=== PATIENT | female | born 1965 | race Caucasian/White ===

== ENCOUNTER 2017-12-19 09:32 | Emergency (ER) | payer OTHER ==
[2017-12-19] MEDS ORDERED: Ketorolac INJ* 60 MG/2 ML VIAL IM ONE (10:27)
[2017-12-19] MEDS ORDERED: Lidocaine 2% PF * 5 ML VIAL INJ ONE (10:34)
--- NOTE | 2017-12-19 10:47 | ED ---
Skin Complaint - HPI Summary HPI Summary: Patient presents with painful bump in her perirectal area on the right side. She noticed a small bump a few days ago which is gotten progressively larger and more painful. She denies fever, chills, nausea, vomiting, abdominal pain however she notes her bowel movements have become painful as she passes stool externally it presses on this area. Denies drainage from the area. She has been trying warm compresses without much relief. She is also taken some ibuprofen but has not taken any today. She still able to urinate move her bowels. Denies diarrhea, hematochezia, melena and no history of inflammatory bowel disease/fistulas/hemorrhoids or rectal/digestive issues. Furthermore, she admits she is a fast healer whenever she gets cuts or scrapes on her scan however does have a history of MRSA. 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 She also admits to shaving in this area. - History of Current Complaint Chief Complaint: UCSkin Time Seen by Provider: 12/19/17 10:07 Stated Complaint: BOIL- BUTTOCKS Hx Obtained From: Patient Hx Last Menstrual Period: 2 weeks Pain Intensity: 7 - Allergy/Home Medications Allergies/Adverse Reactions: Allergies Allergy/AdvReac Type Severity Reaction Status Date / Time bee venom protein (honey bee) Allergy Difficulty Verified 12/19/17 09:50 Breathing Penicillins Allergy Difficulty Verified 12/19/17 09:50 Breathing Home Medications: Home Medications Ibuprofen TAB* [Advil TAB*] 600 mg PO Q6H PRN 12/19/17 [History Confirmed ] PMH/Surg Hx/FS Hx/Imm Hx Previously Healthy: Yes Endocrine/Hematology History: Denies: Hx Anticoagulant Therapy, Hx Blood Disorders, Hx Diabetes, Autoimmune Disease Respiratory History: Reports: Hx Chronic Obstructive Pulmonary Disease (COPD) GI History: Denies: Hx Crohn's Disease, Hx Diverticulosis, Hx Gastroesophageal Reflux Disease, Hx Gastrointestinal Bleed, Hx Irritable Bowel - Surgical History Surgery Procedure, Year, and Place: tonsillectomy. cervics removed. appendectomy. ACL repair R knee Infectious Disease History: Yes Infectious Disease History: Reports: Hx of Known/Suspected MRSA - hand, forehead Denies: Traveled Outside the [place] in Last 30 Days - Family History Known Family History: Positive: None - Social History Occupation: Employed Full-time - senior quality assurance analyst at [employer] Alcohol Use: Rare Hx Substance Use: No Substance Use Type: Reports: None Hx Tobacco Use: Yes Smoking Status (MU): Current Every Day Smoker Type: Cigarettes Amount Used/How Often: 1-1/2 ppd Review of Systems Constitutional: Negative Negative: Fever, Chills, Fatigue Cardiovascular: Negative Respiratory: Negative Gastrointestinal: Negative Positive: see HPI Musculoskeletal: Negative Skin: Negative Neurological: Negative Psychological: Normal All Other Systems Reviewed And Are Negative: Yes Physical Exam Triage Information Reviewed: Yes Vital Signs On Initial Exam: Initial Vitals Temp Pulse Resp BP Pulse Ox 98.2 F 80 16 126/83 97 12/19/17 09:44 12/19/17 09:44 12/19/17 09:44 12/19/17 09:44 12/19/17 09:44 Vital Signs Reviewed: Yes Appearance: Positive: Well-Appearing, No Pain Distress - lying in Lt side - discomfort w/ transitin of positions, Well-Nourished Skin: Positive: Warm, Skin Color Reflects Adequate Perfusion, Dry Head/Face: Positive: Normal Head/Face Inspection Eyes: Positive: EOMI ENT: Positive: Hearing grossly normal Respiratory/Lung Sounds: Positive: Breath Sounds Present Cardiovascular: Positive: Pulses are Symmetrical in both Upper and Lower Extremities. Negative: Leg Edema Left, Leg Edema Right Abdomen Description: Positive: Nontender, Soft Pelvic Exam: Positive: External Exam Normal - Rt perilabial/perirectal abscess - erythematous, raised area w/ central pusutle - no drainage, TTP - edema with mild tracking toward Rt labia anteriorly; this area of irritation does not touch the rectal sphincter externally - no bleeding, no hemrrhoids, no fissues observed Musculoskeletal: Positive: Normal, Strength/ROM Intact Neurological: Positive: Normal, Sensory/Motor Intact, Alert, Oriented to Person Place, Time, CN Intact II-III Psychiatric: Positive: Normal - concerned but calm, cooperative and pleasant Procedures - Incision and Drainage Right Buttocks Site: Rt perineal region Anesthesia: Local, Lidocaine - 2% Instrument(s): Scalpel - #11 - seropurlent drainage Packing: Other - flushed w/ saline and covered with sterile gauze - hemodynamically stable -pt tolerated well Diagnostics - Vital Signs Vital Signs Temp Pulse Resp BP Pulse Ox 12/19/17 09:44 98.2 F 80 16 126/83 97 - Laboratory Lab Statement: Any lab studies that have been ordered have been reviewed, and results considered in the medical decision making process. Re-Evaluation - Re-Evaluation First Eval Change: Improved - pt reports "I feel much better".." I can stand and walk now" Course/Dx - Diagnoses Provider Diagnoses: Perineal abscess Discharge - Sign-Out/Discharge Documenting (check all that apply): Patient Departure All imaging exams completed and their final reports reviewed: No - Discharge Plan Condition: Stable Disposition: HOME Prescriptions: Ibuprofen TAB* [Motrin TAB* 600 MG] 600 mg PO Q6H PRN #20 tab PRN Reason: Pain Sulfamethox/Trimethoprim DS* [Bactrim DS 800/160 TAB*] 1 tab PO BID #20 tab Patient Education Materials: Abscess (ED), Incision and Drainage (ED), Sitz Bath (DC) Forms: *Work Release Referrals: No Primary Care Phys,NOPCP [Primary Care Provider] - Additional Instructions: Your abscess was opened and drained today. Is important that you keep this area as clean as possible. You may do this by rinsing the area with a water bottle after moving your bowels or urinating. Pat dry with a clean cloth and replace fresh clean gauze pad into the area before pulling up your underwear to help hold gauze in place. Check dressing multiple times throughout the day to assess for excessive bleeding or drainage. If your bleeding through gauze pads , go to the emergency department. Additionally, you may implement sitz baths (see education for details and ask pharmacist for direction). This will help the area stay clean and heal. It is also important that you complete your antibiotics as directed. Ibuprofen has been sent to the pharmacy for pain and swelling - take as directed with food. Follow-up back here at urgent care in 2 days for recheck of your wound. If you' re feeling worse in the meantime (i.e. fever, chills, excessive bleeding or drainage, nausea, vomiting, abdominal pain, difficulty urinating or moving her bowels) go to the emergency department. As we discussed today, if your wound is not healing appropriately or requires further attention, you may be referred to a general surgeon. The provider that sees you here in 2 days will make this decision. - Billing Disposition and Condition Condition: STABLE Disposition: Home
[2017-12-19 11:57] VITALS: BP 122/74
--- NOTE | 2017-12-20 08:43 | UC ---
Re-Evaluation - Re-Evaluation First Eval Change: Improved - pt reports "I feel much better".." I can stand and walk now" Course/Dx - Diagnoses Provider Diagnoses: Perineal abscess Discharge - Sign-Out/Discharge Documenting (check all that apply): Post-Discharge Follow Up All imaging exams completed and their final reports reviewed: No Studies - Discharge Plan Condition: Stable Disposition: HOME Prescriptions: Ibuprofen TAB* [Motrin TAB* 600 MG] 600 mg PO Q6H PRN #20 tab PRN Reason: Pain Sulfamethox/Trimethoprim DS* [Bactrim DS 800/160 TAB*] 1 tab PO BID #20 tab Patient Education Materials: Abscess (ED), Incision and Drainage (ED), Sitz Bath (DC) Forms: *Work Release Referrals: No Primary Care Phys,NOPCP [Primary Care Provider] - Additional Instructions: Your abscess was opened and drained today. Is important that you keep this area as clean as possible. You may do this by rinsing the area with a water bottle after moving your bowels or urinating. Pat dry with a clean cloth and replace fresh clean gauze pad into the area before pulling up your underwear to help hold gauze in place. Check dressing multiple times throughout the day to assess for excessive bleeding or drainage. If your bleeding through gauze pads , go to the emergency department. Additionally, you may implement sitz baths (see education for details and ask pharmacist for direction). This will help the area stay clean and heal. It is also important that you complete your antibiotics as directed. Ibuprofen has been sent to the pharmacy for pain and swelling - take as directed with food. Follow-up back here at urgent care in 2 days for recheck of your wound. If you' re feeling worse in the meantime (i.e. fever, chills, excessive bleeding or drainage, nausea, vomiting, abdominal pain, difficulty urinating or moving her bowels) go to the emergency department. As we discussed today, if your wound is not healing appropriately or requires further attention, you may be referred to a general surgeon. The provider that sees you here in 2 days will make this decision. - Billing Disposition and Condition Condition: STABLE Disposition: Home
== END 2017-12-19 11:50 | disposition home or self-care (01) ==
LOC: UCEAST 09:32
DX: L02.215 Cutaneous abscess of perineum (principal); F17.210 Nicotine dependence, cigarettes, uncomplicated; Z91.030 Bee allergy status; Z88.0 Allergy status to penicillin; Z86.14 Personal history of Methicillin resistant Staphylococcus aureus infection
CPT/HCPCS: 10060; 87070; 87077; 87186; 87205; 87640; 87641; 96372; 99202; G0463; J1885

== ENCOUNTER 2017-12-21 11:32 | Emergency (ER) | payer OTHER ==
[2017-12-21 11:40] VITALS: BP 117/64
--- NOTE | 2017-12-21 11:43 | UC ---
Skin Complaint HPI - HPI Summary HPI Summary: 52 yo female presents for an abscess recheck. She tells me that she was here 2 days ago for a perineal abscess that was drained. Cultured showed MRSA, but pt knew she had a hx of MRSA and was placed on bactrim at visit. She denies fever or chills and says the area is healing very well. Very mild pain - History of Current Complaint Chief Complaint: UCSkin Time Seen by Provider: 12/21/17 11:42 Stated Complaint: RE-CHECK BOIL (BUTTOCKS) Hx Obtained From: Patient Hx Last Menstrual Period: 2 weeks Current Severity: Mild Pain Intensity: 1 Pain Scale Used: 0-10 Numeric - Allergy/Home Medications Allergies/Adverse Reactions: Allergies Allergy/AdvReac Type Severity Reaction Status Date / Time bee venom protein (honey bee) Allergy Difficulty Verified 12/21/17 11:40 Breathing Penicillins Allergy Difficulty Verified 12/21/17 11:40 Breathing Review of Systems Constitutional: Negative Skin: Other - Abscess perineal region Respiratory: Negative Cardiovascular: Negative Neurovascular: Negative Neurological: Negative Psychological: Negative All Other Systems Reviewed And Are Negative: Yes PMH/Surg Hx/FS Hx/Imm Hx - Additional Past Medical History Additional PMH: None Other History Of: Negative For: Anticoagulant Therapy - Surgical History Surgical History: Yes Surgery Procedure, Year, and Place: tonsillectomy. cervics removed. appendectomy. ACL repair R knee - Family History Known Family History: Positive: None - Social History Occupation: Employed Full-time Lives: With Family Alcohol Use: Rare Substance Use Type: None Smoking Status (MU): Current Every Day Smoker Type: Cigarettes Amount Used/How Often: 1-1/2 ppd Household Exposure Type: Cigarettes Physical Exam - Summary Physical Exam Summary: GENERAL: NAD. WDWN. No pain distress. SKIN: Perineal area with 5mm area of hardness, mild TTP. No active drainage or expressable drainage. No erythema or extending edema. NECK: Supple. Nontender. No lymphadenopathy. CHEST: No accessory muscle use. Breathing comfortably and in no distress. CV: Pulses intact. Cap refill <2seconds NEURO: Alert. PSYCH: Age appropriate behavior. Triage Information Reviewed: Yes Vital Signs: Initial Vital Signs Temp 99.6 F 12/21/17 11:35 Pulse 72 12/21/17 11:35 Resp 18 10/17/18 11:35 BP 117/64 12/21/17 11:35 Pulse Ox 97 12/21/17 11:35 Vital Signs Reviewed: Yes Course/Dx - Course Course Of Treatment: Exam assisted by Jerrica WHALEN. Abscess is healing very well and pt is on Bactrim for MRSA. Advised to continue to change dressing to the area daily until well healed and continue anbx. - Diagnoses Provider Diagnoses: Perineal abscess Discharge - Sign-Out/Discharge Documenting (check all that apply): Patient Departure All imaging exams completed and their final reports reviewed: No Studies - Discharge Plan Condition: Stable Disposition: HOME Patient Education Materials: Abscess (ED) Referrals: No Primary Care Phys,NOPCP [Primary Care Provider] - Additional Instructions: If you develop a fever, shortness of breath, chest pain, new or worsening symptoms - please call your PCP or go to the ED. 1) Change the dressing daily 2) Continue taking your antibiotic - Billing Disposition and Condition Condition: STABLE Disposition: Home
== END 2017-12-21 11:53 | disposition home or self-care (01) ==
LOC: UCEAST 11:32
DX: L02.31 Cutaneous abscess of buttock (principal); B95.62 Methicillin resistant Staphylococcus aureus infection as the cause of diseases classified elsewhere; Z88.0 Allergy status to penicillin; Z91.030 Bee allergy status; F17.210 Nicotine dependence, cigarettes, uncomplicated
CPT/HCPCS: 99211; G0463

== ENCOUNTER 2018-06-03 16:36 | Observation (INO) | payer OTHER ==
[2018-06-03 19:34] LABS: ABS Basophils 0.1 10^3/ul (0-0.2); ABS Eosinophils 0.1 10^3/ul (0-0.6); ABS Lymphocytes 3.4 10^3/ul (1.0-4.8); ABS Monocytes 1.1 10^3/ul (0-0.8); ABS Neutrophils 6.5 10^3/ul (1.5-7.7); ABS Nucleated RBC 0 10^3/ul; Eosinophil % 0.5 %; Hematocrit 51 % (33-41); Hemoglobin 16.6 g/dL (12.0-16.0); Lymphocyte % 30.6 %; Mean Corpuscular HGB Conc 33 g/dL (31-36); Mean Corpuscular Hemoglobin 30 pg (27-31); Mean Corpuscular Volume 91 fL (80-97); Mean Platelet Volume 8.4 fL (7.4-10.4); Nucleated Red Blood Cells % 0.1; Platelet Count 276 10^3/uL (150-450); Red Blood Count 5.57 10^6 /uL (3.70-4.87); Red Cell Distribution Width 14 % (10.5-15); White Blood Count 11.2 10^3/uL (3.5-10.8)
[2018-06-03 19:51] LABS: Albumin 4.4 g/dL (3.2-5.2); Albumin/Globulin Ratio 1.6 (1-3); BUN/Creatinine Ratio 20.7 (8-20); Calcium 9.7 mg/dL (8.6-10.3); EGFR African American 87.9 (>60); EGFR Non-African American 72.6 (>60); Globulin 2.8 g/dL (2-4); Potassium 4.1 mmol/L (3.5-5.0); Total Bilirubin 0.4 mg/dL (0.2-1.0); Total Protein 7.2 g/dL (6.4-8.9)
[2018-06-03] MEDS ORDERED: Albuterol/Ipratropium NEB.SOL* Albuterol 2.5 MG/Ipratropium 0.5 MG 3 ML INH ONE ×2 (20:17→22:51)
[2018-06-03] MEDS ORDERED: predniSONE TAB* 20 MG PO ONE (20:18)
--- NOTE | 2018-06-03 20:19 | UC ---
Psychiatric Complaint HPI - History Of Current Complaint Chief Complaint: EDShortnessOfBreath Stated Complaint: I THINK I HAVE PNEUMONIA OR SOMETHIN PER PT Time Seen by Provider: 06/03/18 20:10 Hx Last Menstrual Period: 2 weeks - Allergies/Home Medications Allergies/Adverse Reactions: Allergies Allergy/AdvReac Type Severity Reaction Status Date / Time bee venom protein (honey bee) Allergy Difficulty Verified 06/03/18 16:44 Breathing Penicillins Allergy Difficulty Verified 06/03/18 16:44 Breathing Home Medications: Home Medications NK [No Home Medications Reported] 06/03/18 [History Confirmed 06/03/18] PMH/Surg Hx/FS Hx/Imm Hx Other History Of: Negative For: Anticoagulant Therapy - Surgical History Surgical History: Yes Surgery Procedure, Year, and Place: tonsillectomy. cervics removed. appendectomy. ACL repair R knee - Family History Known Family History: Positive: None - Social History Alcohol Use: Rare Substance Use Type: None Smoking Status (MU): Current Every Day Smoker Type: Cigarettes Amount Used/How Often: 1-1/2 ppd Household Exposure Type: Cigarettes Physical Exam - Summary Physical Exam Summary: Appearance: Well appearing, no pain distress Skin: warm, dry, reflects adequate perfusion Head/face: normal Eyes: EOMI, SUZAN ENT: normal Neck: supple, non-tender Respiratory: CTA, breath sounds present. Bilateral wheeze. Cardiovascular: RRR, pulses symmetrical Abdomen: non-tender, soft Musculoskeletal: normal, strength/ROM intact Neuro: normal, sensory motor intact, A&Ox3 Triage Information Reviewed: Yes Vital Signs: Initial Vital Signs Temp 99.3 F 06/03/18 16:40 Pulse 82 06/03/18 16:40 Resp 20 06/03/18 16:40 BP 115/89 06/03/18 16:40 Pulse Ox 95 06/03/18 16:40 Discharge - Discharge Plan Referrals: No Primary Care Phys,NOPCP [Primary Care Provider] - - Attestation Statements Document Initiated by Scribe: Yes Documenting Scribe: Luis F Heard Provider For Whom Scribe is Documenting (Include Credential): Rachid Thornton MD Scribe Attestation: Luis F Gannon, scribed for Rachid Thornton MD on 06/03/18 at 2033.
--- NOTE | 2018-06-03 20:38 | ED ---
Shortness of Breath - HPI Summary HPI Summary: This patient is a 52 year old F presenting to [facility] with a chief complaint of SOB since three days ago. The patient rates the pain 4/10 in severity. Patient reports CP with cough, wheezing, congestion, and intermittent fever. Patient denies LE edema or wet cough. No PMHx COPD, asthma, emphysema, diverticulitis. SHX tobacco use, daily. No SHx EtOH use, drug use. - History of Current Complaint Chief Complaint: EDShortnessOfBreath Time Seen by Provider: 06/03/18 20:10 Hx Obtained From: Patient Onset/Duration: Gradual Onset, Lasting Days - 3 Dyspnea At: Rest Aggrevating Factors: Movement, Deep Breaths Associated Signs & Symptoms: Cough (Nonproductive), Wheezing, Chest Pain w/Cough , Fever, Nasal Congestion - Allergy/Home Medications Allergies/Adverse Reactions: Allergies Allergy/AdvReac Type Severity Reaction Status Date / Time bee venom protein (honey bee) Allergy Difficulty Verified 06/03/18 16:44 Breathing Penicillins Allergy Difficulty Verified 06/03/18 16:44 Breathing Home Medications: Home Medications NK [No Home Medications Reported] 06/03/18 [History Confirmed 06/03/18] PMH/Surg Hx/FS Hx/Imm Hx Endocrine/Hematology History: Denies: Hx Anticoagulant Therapy, Hx Blood Disorders, Hx Diabetes Respiratory History: Reports: Hx Chronic Obstructive Pulmonary Disease (COPD) GI History: Denies: Hx Crohn's Disease, Hx Diverticulosis, Hx Gastroesophageal Reflux Disease, Hx Gastrointestinal Bleed, Hx Irritable Bowel - Surgical History Surgery Procedure, Year, and Place: tonsillectomy. cervics removed. appendectomy. ACL repair R knee Infectious Disease History: No Infectious Disease History: Reports: Hx of Known/Suspected MRSA - hand, forehead Denies: Traveled Outside the [place] in Last 30 Days - Family History Known Family History: Positive: Respiratory Disease - Social History Alcohol Use: Rare Hx Substance Use: No Substance Use Type: Reports: None Hx Tobacco Use: Yes Smoking Status (MU): Light Every Day Tobacco Smoker Type: Cigarettes Amount Used/How Often: 1-1/2 ppd Review of Systems Positive: Fever Positive: Nasal Discharge Positive: Chest Pain - with cough Positive: Shortness Of Breath, Cough - dry, Other - wheezing Negative: Edema - LE All Other Systems Reviewed And Are Negative: Yes Physical Exam - Summary Physical Exam Summary: Appearance: Well appearing, no pain distress Skin: warm, dry, reflects adequate perfusion Head/face: normal Eyes: EOMI, SUZAN ENT: normal Neck: supple, non-tender Respiratory: CTA, breath sounds present. Bilateral wheeze. Cardiovascular: RRR, pulses symmetrical Abdomen: non-tender, soft Musculoskeletal: normal, strength/ROM intact Neuro: normal, sensory motor intact, A&Ox3 Triage Information Reviewed: Yes Vital Signs On Initial Exam: Initial Vitals Temp Pulse Resp BP Pulse Ox 99.3 F 82 20 115/89 95 06/03/18 16:40 06/03/18 16:40 06/03/18 16:40 06/03/18 16:40 06/03/18 16:40 Vital Signs Reviewed: Yes Diagnostics - Vital Signs Vital Signs Temp Pulse Resp BP Pulse Ox 06/03/18 20:30 63 91/77 93 06/03/18 20:29 81 93 06/03/18 19:55 97.6 F 74 16 100/66 96 06/03/18 16:40 99.3 F 82 20 115/89 95 - Laboratory Lab Results: Lab Results 06/03/18 06/03/18 06/03/18 Range/Units 19:20 19:20 19:20 WBC 11.2 H (3.5-10.8) 10^3/uL RBC 5.57 H (3.70-4.87) 10^6 /uL Hgb 16.6 H (12.0-16.0) g/dL Hct 51 H (33-41) % MCV 91 (80-97) fL MCH 30 (27-31) pg MCHC 33 (31-36) g/dL RDW 14 (10.5-15) % Plt Count 276 (150-450) 10^3/uL MPV 8.4 (7.4-10.4) fL Neut % (Auto) 58.5 % Lymph % (Auto) 30.6 % [place] % (Auto) 9.5 % Eos % (Auto) 0.5 % Baso % (Auto) 0.9 % Absolute Neuts (auto) 6.5 (1.5-7.7) 10^3/ul Absolute Lymphs (auto) 3.4 (1.0-4.8) 10^3/ul Absolute Monos (auto) 1.1 H (0-0.8) 10^3/ul Absolute Eos (auto) 0.1 (0-0.6) 10^3/ul Absolute Basos (auto) 0.1 (0-0.2) 10^3/ul Absolute Nucleated RBC 0 10^3/ul Nucleated RBC % 0.1 Sodium 137 (135-145) mmol/L Potassium 4.1 (3.5-5.0) mmol/L Chloride 103 (101-111) mmol/L Carbon Dioxide 26 (22-32) mmol/L Anion Gap 8 (2-11) mmol/L BUN 17 (6-24) mg/dL Creatinine 0.82 (0.51-0.95) mg/dL Est GFR ( Amer) 87.9 (>60) Est GFR (Non-Af Amer) 72.6 (>60) BUN/Creatinine Ratio 20.7 H (8-20) Glucose 100 (70-100) mg/dL Lactic Acid 0.8 (0.5-2.0) mmol/L Calcium 9.7 (8.6-10.3) mg/dL Total Bilirubin 0.40 (0.2-1.0) mg/dL AST 25 (13-39) U/L ALT 40 (7-52) U/L Alkaline Phosphatase 120 H (34-104) U/L Troponin I 0.00 (<0.04) ng/mL Total Protein 7.2 (6.4-8.9) g/dL Albumin 4.4 (3.2-5.2) g/dL Globulin 2.8 (2-4) g/dL Albumin/Globulin Ratio 1.6 (1-3) Result Diagrams: 06/03/18 19:20 06/03/18 19:20 Lab Statement: Any lab studies that have been ordered have been reviewed, and results considered in the medical decision making process. - Radiology CXR Radiology Interpretation Completed By: ED Physician Summary of Radiographic Findings: Negative, pending official report. - EKG 16:48 Cardiac Rate: NL - 78 bpm EKG Rhythm: Sinus Rhythm Summary of EKG Findings: No acute changes Course/Dx - Course Course Of Treatment: This patient is a 52 year old F presenting to [facility] with a chief complaint of SOB since three days ago. The patient rates the pain 4/10 in severity. Patient reports CP with cough, wheezing, congestion, and intermittent fever. Patient denies LE edema or wet cough. An EKG reveals NSR 78 bpm, no acute changes. CXR reveals, per ED physician, negative exam. Bloodwork/UA obtained. In the ED course the patient was given Albuterol and Prednisone. The patient will be signed out by Dr. Thornton to JAV[facility] Montoya, awaiting re evaluation. - Diagnoses Differential Diagnosis/HQI/PQRI: Positive: Bronchitis, Pneumonia Provider Diagnoses: Bronchospasm Discharge - Sign-Out/Discharge Documenting (check all that apply): Sign-Out Patient Signing out patient TO: Gerry Temple Patient Received Moderate/Deep Sedation with Procedure: No - Discharge Plan Referrals: No Primary Care Phys,NOPCP [Primary Care Provider] - - Attestation Statements Document Initiated by Adamibe: Yes Documenting Scribe: Luis F Heard Provider For Whom Scribe is Documenting (Include Credential): Rachid Thornton MD Scribe Attestation: Luis F Gannon scribed for Rachid Thornton MD on 06/03/18 at 2123. Scribe Documentation Reviewed: Yes Provider Attestation: The documentation as recorded by the Luis F alcazar accurately reflects the service I personally performed and the decisions made by , Rachid Thornton MD Status of Scribe Document: Viewed
[2018-06-03] MEDS ORDERED: NS 0.9% 1000 ML** 1,000 ML IV ONE (22:16)
[2018-06-04] MEDS ORDERED: Albuterol HFA INHALER* 8 gm MDI INH ONE (00:43)
--- NOTE | 2018-06-04 01:40 | PN ---
Progress Note - Progress Note Date of Service: 06/04/18 Note: Patient signed out to me by Dr. Thornton . Patient came in complaining of flulike symptoms including cough, headache, body aches, diarrhea, low-grade fever 4 days with shortness of breath 2 days. Denies medical history, but is long-term smoker. No formal diagnosis of COPD. Patient lung sounds sound consistent with COPD exacerbation. Patient initially had normal vital signs, but then began to desat into the 80s, was placed on oxygen. After DuoNeb treatment 3 patient was tachycardic and has remained so for 5 hours. However, tachycardia has improved from rate of 130-160, down to 100-130. Second EKG shows a rhythm change from regular sinus rhythm to irregular, possible a flutter rhythm. Patient on room air currently, running around 93-95%. PO2 by ABG is 72. No prior history of irregular rhythm. No anti-coagulation. D- dimer less than 200. Patient lung sounds continue to be consistent with COPD exacerbation. She has no inhaler or nebulizer at home. Diagnosis COPD exacerbation. New-onset A. flutter. Patient admitted to hospitalist [facility] [place]
[2018-06-04 02:37] LABS: Influenza A Molecular NEGATIVE (Negative); Influenza B Molecular NEGATIVE (Negative)
[2018-06-04] MEDS ORDERED: Albuterol/Ipratropium NEB.SOL* Albuterol 2.5 MG/Ipratropium 0.5 MG 3 ML INH PRN (03:32)
[2018-06-04] MEDS ORDERED: Acetaminophen TAB* 325 MG PO PRN (03:35)
[2018-06-04] MEDS ORDERED: Ondansetron INJ* 2 MG/ML VIAL IV PRN (03:35)
[2018-06-04] MEDS: Heparin VIAL(*) 5000 UNITS/ML VIAL (FIVE THOUSAND) SUBCUT SCH ×3 (05:52→21:19)
--- NOTE | 2018-06-04 06:11 | ADMNOTE ---
Subjective Date of Service: 06/04/18 Interval History: HISTORY AND PHYSICAL DATE OF ADMISSION 06/04/18 CHIEF COMPLAINT: SHORTNESS OF BREATH, NEW ONSET PAROXSYMAL ATRIAL FIBRILLATION PCP: JAVI CHERRY [employer] SET UP OPERATOR: Francisco Cronin, Boyfriend HPI: 52F with past medical history of COPD (not on treatment) and tobacco use who is presenting for shortness of breath for 3 days. Patient reports she was in her usual state of health until three days ago when she woke up with URI symptoms, coughing, runny nose, sore throat, and fatigue. She tried to take it easy at home and take time off work but her coughing got worse until today where she had persistent shortness of breath and was not able to ambulate around the house without gasping. She decided to present to the ER for further treatment ROS: Denies fevers or chills, denies vision changes, headaches, difiuclty swallowing, chest pain, orthopnea, nausea, vomiting, diarrhea, constipation, myalgias, arthralgias ,rases, focal weakness, sick contacts. Does endorse prodcutive scant white pghlem cough, shortness of breath, and palpitations after nebulizer treatment. ED Course: When she arrived vital signs are stable, satting 93% on room air. Her labs including D-Dimer are unremarkable save for mild leukocytosis, flu is negative. A chest xray is done which shows no acute cardiopulmnary disease or infiltrate. An EKG shows NSR initially, though she rec'd 4 Duonebs in the ER and then became sinus tachycardic to the 120s and then went into atrial fibrillatio nwith rates in the 110-120's spontaneously, with stable pressures and the hospitalist team was asked to evaluate for new onset atrial fibrillation. 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 Tob: 20 pack year 1/2 PPD current, ETOH: Social 1-2 per week, Illicits: none Family Hx: Non Contributory Medications: None Allergies: Bees and PCN ROS: As per HPI Family History: Unchanged from Admission Social History: Unchanged from Admission Review of Systems - Measurements Intake and Output: Intake and Output Last 24 Hours 03/06/02/18 06/03/18 06/04/18 06:59 06:59 06:59 06:59 Intake Total 1000 Balance 1000 Weight 159 lb Intake: IV Fluids 1000 - Review of Systems General Comments: As per HPI Objective Active Medications: Acetaminophen (Tylenol Tab*) 650 mg PO Q4H PRN PRN Reason: FEVER/PAIN Albuterol/Ipratropium (Duoneb (Albuterol 2.5 Mg/Ipratropium 0.5 Mg)) 1 neb INH Q6H PRN PRN Reason: SOB/WHEEZING Heparin Sodium (Porcine) (Heparin Vial(*)) 5,000 units SUBCUT Q8HR [facility] Last Admin: 06/04/18 05:52 Dose: 5,000 units Ondansetron HCl (Zofran Inj*) 4 mg IV Q6H PRN PRN Reason: NAUSEA Prednisone (Deltasone Tab*) 40 mg PO DAILY [facility] Vital Signs - 8 hr 06/03/18 06/03/18 06/03/18 22:30 22:59 23:01 Temperature Pulse Rate 140 134 145 Respiratory 28 22 24 Rate Blood Pressure 101/66 106/62 (mmHg) O2 Sat by Pulse 92 93 93 Oximetry 06/03/18 06/04/18 06/04/18 23:29 00:00 00:03 Temperature Pulse Rate 151 149 115 Respiratory 22 29 Rate Blood Pressure 112/79 (mmHg) O2 Sat by Pulse 91 93 93 Oximetry 06/04/18 06/04/18 06/04/18 00:30 00:59 01:01 Temperature Pulse Rate 113 127 126 Respiratory 24 15 26 Rate Blood Pressure 100/66 110/78 (mmHg) O2 Sat by Pulse 91 91 91 Oximetry 06/04/18 06/04/18 06/04/18 01:30 02:00 02:01 Temperature Pulse Rate 107 105 111 Respiratory 23 25 17 Rate Blood Pressure 103/63 99/77 (mmHg) O2 Sat by Pulse 93 92 93 Oximetry 06/04/18 06/04/18 06/04/18 02:29 02:59 03:01 Temperature Pulse Rate 128 105 97 Respiratory 23 22 20 Rate Blood Pressure 123/77 107/73 (mmHg) O2 Sat by Pulse 90 91 91 Oximetry 06/04/18 06/04/18 06/04/18 03:29 03:59 04:01 Temperature Pulse Rate 80 84 82 Respiratory 21 20 22 Rate Blood Pressure 101/69 130/75 (mmHg) O2 Sat by Pulse 89 91 91 Oximetry 06/04/18 06/04/18 06/04/18 04:30 04:50 05:00 Temperature 97.9 F Pulse Rate 81 84 85 Respiratory 20 23 14 Rate Blood Pressure 120/82 120/82 123/78 (mmHg) O2 Sat by Pulse 94 93 94 Oximetry 06/04/18 06/04/18 05:01 05:21 Temperature 97.5 F Pulse Rate 76 76 Respiratory 17 16 Rate Blood Pressure 107/76 (mmHg) O2 Sat by Pulse 95 94 Oximetry Oxygen Devices in Use Now: None Appearance: Pleasant woman sleeping, has converted to sinus rhytym by the time I examine her Eyes: No Scleral Icterus Ears/Nose/Mouth/Throat: NL Teeth, Lips, Gums Neck: NL Appearance and Movements; NL JVP Respiratory: - - Diffuse wheeze E/I good air movement, no extra work in breathing Cardiovascular: NL Sounds; No Murmurs; No JVD, RRR Abdominal: NL Sounds; No Tenderness; No Distention, No Hepatosplenomegaly Lymphatic: No Cervical Adenopathy Extremities: No Edema Skin: No Rash or Ulcers Neurological: Alert and Oriented x 3 Result Diagrams: 06/03/18 19:20 06/03/18 19:20 Additional Lab and Data: Lab Results 06/03/18 06/03/18 06/03/18 Range/Units 19:20 19:20 19:20 WBC 11.2 H (3.5-10.8) 10^3/uL RBC 5.57 H (3.70-4.87) 10^6 /uL Hgb 16.6 H (12.0-16.0) g/dL Hct 51 H (33-41) % MCV 91 (80-97) fL MCH 30 (27-31) pg MCHC 33 (31-36) g/dL RDW 14 (10.5-15) % Plt Count 276 (150-450) 10^3/uL MPV 8.4 (7.4-10.4) fL Neut % (Auto) 58.5 % Lymph % (Auto) 30.6 % [place] % (Auto) 9.5 % Eos % (Auto) 0.5 % Baso % (Auto) 0.9 % Absolute Neuts (auto) 6.5 (1.5-7.7) 10^3/ul Absolute Lymphs (auto) 3.4 (1.0-4.8) 10^3/ul Absolute Monos (auto) 1.1 H (0-0.8) 10^3/ul Absolute Eos (auto) 0.1 (0-0.6) 10^3/ul Absolute Basos (auto) 0.1 (0-0.2) 10^3/ul Absolute Nucleated RBC 0 10^3/ul Nucleated RBC % 0.1 Sodium 137 (135-145) mmol/L Potassium 4.1 (3.5-5.0) mmol/L Chloride 103 (101-111) mmol/L Carbon Dioxide 26 (22-32) mmol/L Anion Gap 8 (2-11) mmol/L BUN 17 (6-24) mg/dL Creatinine 0.82 (0.51-0.95) mg/dL Est GFR ( Amer) 87.9 (>60) Est GFR (Non-Af Amer) 72.6 (>60) BUN/Creatinine Ratio 20.7 H (8-20) Glucose 100 (70-100) mg/dL Lactic Acid 0.8 (0.5-2.0) mmol/L Calcium 9.7 (8.6-10.3) mg/dL Total Bilirubin 0.40 (0.2-1.0) mg/dL AST 25 (13-39) U/L ALT 40 (7-52) U/L Alkaline Phosphatase 120 H (34-104) U/L Troponin I 0.00 (<0.04) ng/mL Total Protein 7.2 (6.4-8.9) g/dL Albumin 4.4 (3.2-5.2) g/dL Globulin 2.8 (2-4) g/dL Albumin/Globulin Ratio 1.6 (1-3) Microbiology and Other Data: Microbiology 06/04/18 02:09 Influenza Types A,B Antigen - Final Nasopharyngeal Specimen received for Influenza A/B Molecular testing EKG Data: Atrial fibrillation vs flutter on 06/04 12 Lead, no e/o ischemia On telemetry: Sinus rhythm Assess/Plan/Problems-Billing Assessment: 52F with past medical history of COPD (not on treatment) and tobacco use who is presenting for shortness of breath for 3 days, consistent with a COPD exacerbation likely from URI. She also had one episode of paroxsymal atrial fibrillation in the emergency room and is being admitted on observation status to monitor this. - Patient Problems (1) Paroxysmal atrial fibrillation Current Visit: Yes Status: Acute Code(s): I48.0 - PAROXYSMAL ATRIAL FIBRILLATION SNOMED Code(s): 798457187 Comment: Assumed new onset though unknown, possibly neb induced. -CHADS VASC 1, favoring no AC -Continue tele -Consider echo, appropriate for outpatient -Check TSH (2) COPD with exacerbation Current Visit: Yes Status: Acute Code(s): J44.1 - CHRONIC OBSTRUCTIVE PULMONARY DISEASE W (ACUTE) EXACERBATION SNOMED Code(s): 715142405 Comment: No formal PFTS, will need them as outpatient -Continue Prednisone 40mg, total of 5 days Day /5 on 06/04 -Out patient azithromycin appropriate for anti inflmmatory purposes -Unclear if neb triggered A fib, will trial Advair inhaler as pt says albuterol has given her palpitations in the past -Offer Duonebs q4 hours, although pt reports tachycardia and she trys to avoid (3) Tobacco dependence Current Visit: Yes Status: Acute Code(s): F17.200 - NICOTINE DEPENDENCE, UNSPECIFIED, UNCOMPLICATED SNOMED Code(s): 23350260 Comment: Encourage cessation, offer patches (4) DVT prophylaxis Current Visit: Yes Status: Acute Code(s): SKX8271 - SNOMED Code(s): 816338632 Comment: SQ (5) Full code status Current Visit: Yes Status: Acute Code(s): Z78.9 - OTHER SPECIFIED HEALTH STATUS SNOMED Code(s): 000869415 Status and Disposition: Likely stable for d/c 06/04/2018
[2018-06-04] MEDS ORDERED: Azithromycin TAB* 250 MG PO ONE (06:31)
[2018-06-04] MEDS: Mometasone/Formoter 100/5 MDI INH SCH ×2 (07:14→19:31)
[2018-06-04] MEDS: predniSONE TAB* 20 MG PO SCH (08:04)
--- NOTE | 2018-06-04 10:29 | PN ---
Subjective Date of Service: 06/04/18 Interval History: Pt was tachy overnight. She was noted to be in AF in ER. She also showed Wenkebach on tele for a short period of time before arrival to floor. Since admission, she has been NSR on tele. Pt states that she felt SOB and palpitations while in AF. She denies having had palpitations since. Pt relays a history of R sinus tenderness x1week and the L sinus tenderness. She has congestion, runny nose, and cough. She states she had a fever x1 recently. Pt states that L sinus and runny nose has been slowly resolving. Pt also has cough, wheeze, and SOB. She has h/o COPD and continues to smoke, although has cut back to 5-6 cigarettes per day. Family History: Unchanged from Admission Social History: Unchanged from Admission Objective Active Medications: Acetaminophen (Tylenol Tab*) 650 mg PO Q4H PRN Albuterol/Ipratropium (Duoneb (Albuterol 2.5 Mg/Ipratropium 0.5 Mg)) 1 neb INH Q6H PRN Heparin Sodium (Porcine) (Heparin Vial(*)) 5,000 units SUBCUT Q8HR [facility] Mometasone Furoate/Formoterol Fumar (Dulera 100/5 Mdi*) 2 puff INH BID [facility] Ondansetron HCl (Zofran Inj*) 4 mg IV Q6H PRN Prednisone (Deltasone Tab*) 40 mg PO DAILY [facility] Vital Signs: Temp Pulse Resp BP Pulse Ox 97.3 F 76 16 131/70 93 06/04/18 11:07 06/04/18 11:07 06/04/18 11:07 06/04/18 11:07 06/04/18 11:07 Oxygen Devices in Use Now: None Appearance: Pt is laying in bed. She is in no acute distress. Eyes: No Scleral Icterus, PERRLA Ears/Nose/Mouth/Throat: NL Teeth, Lips, Gums, Clear Oropharnyx, Mucous Membranes Moist, - - L maxillary sinus TTP Neck: NL Appearance and Movements; NL JVP, Trachea Midline Respiratory: Symmetrical Chest Expansion and Respiratory Effort, - - Breath sounds decreased with rhonchi throughout and expiratory wheeze throughout. Cardiovascular: NL Sounds; No Murmurs; No JVD, RRR, No Edema Abdominal: NL Sounds; No Tenderness; No Distention, No Hepatosplenomegaly Extremities: No Edema, No Clubbing, Cyanosis Neurological: Alert and Oriented x 3 Result Diagrams: 06/03/18 19:20 06/03/18 19:20 Additional Lab and Data: Lab Results 06/03/18 06/03/18 06/03/18 Range/Units 19:20 19:20 19:20 WBC 11.2 H (3.5-10.8) 10^3/uL RBC 5.57 H (3.70-4.87) 10^6 /uL Hgb 16.6 H (12.0-16.0) g/dL Hct 51 H (33-41) % MCV 91 (80-97) fL MCH 30 (27-31) pg MCHC 33 (31-36) g/dL RDW 14 (10.5-15) % Plt Count 276 (150-450) 10^3/uL MPV 8.4 (7.4-10.4) fL Neut % (Auto) 58.5 % Lymph % (Auto) 30.6 % [place] % (Auto) 9.5 % Eos % (Auto) 0.5 % Baso % (Auto) 0.9 % Absolute Neuts (auto) 6.5 (1.5-7.7) 10^3/ul Absolute Lymphs (auto) 3.4 (1.0-4.8) 10^3/ul Absolute Monos (auto) 1.1 H (0-0.8) 10^3/ul Absolute Eos (auto) 0.1 (0-0.6) 10^3/ul Absolute Basos (auto) 0.1 (0-0.2) 10^3/ul Absolute Nucleated RBC 0 10^3/ul Nucleated RBC % 0.1 Sodium 137 (135-145) mmol/L Potassium 4.1 (3.5-5.0) mmol/L Chloride 103 (101-111) mmol/L Carbon Dioxide 26 (22-32) mmol/L Anion Gap 8 (2-11) mmol/L BUN 17 (6-24) mg/dL Creatinine 0.82 (0.51-0.95) mg/dL Est GFR ( Amer) 87.9 (>60) Est GFR (Non-Af Amer) 72.6 (>60) BUN/Creatinine Ratio 20.7 H (8-20) Glucose 100 (70-100) mg/dL Lactic Acid 0.8 (0.5-2.0) mmol/L Calcium 9.7 (8.6-10.3) mg/dL Total Bilirubin 0.40 (0.2-1.0) mg/dL AST 25 (13-39) U/L ALT 40 (7-52) U/L Alkaline Phosphatase 120 H (34-104) U/L Troponin I 0.00 (<0.04) ng/mL Total Protein 7.2 (6.4-8.9) g/dL Albumin 4.4 (3.2-5.2) g/dL Globulin 2.8 (2-4) g/dL Albumin/Globulin Ratio 1.6 (1-3) Microbiology and Other Data: Microbiology 06/04/18 02:09 Influenza Types A,B Antigen - Final Nasopharyngeal Specimen received for Influenza A/B Molecular testing EKG Data: Atrial fibrillation vs flutter on 06/04 12 Lead, no e/o ischemia On telemetry: Sinus rhythm Assess/Plan/Problems-Billing Assessment: 52F with past medical history of COPD (not on treatment) and tobacco use who is presenting for shortness of breath for 3 days, consistent with a COPD exacerbation likely from URI. She also had one episode of paroxsymal atrial fibrillation in the emergency room and is being admitted on observation status to monitor this. - Patient Problems (1) COPD with exacerbation Comment: -Prednisone (day 2), Azithromycin (day 1), Duonebs q4 -Will need PFTs outpatient (2) Paroxysmal atrial fibrillation Comment: Assumed new onset though unknown, possibly neb induced. Has been NSR since admission -CHADS VASC 1, favoring no AC -Continue tele -Consider echo, appropriate for outpatient -Check TSH (ordered) (3) Sinusitis Comment: -L sinus TTP, bust resolving slowly (4) Tobacco dependence Comment: -Nicotine inhaher ordered -Encourage cessation (5) DVT prophylaxis Comment: -SQH (6) Full code status Status and Disposition: Observation. Discharge when stable.
[2018-06-04] MEDS ORDERED: Nicotine Inhaler* 10 MG AMP INH PRN (10:32)
[2018-06-04] MEDS ORDERED: Mouth Piece, Nicotine* 1 EACH CARTRIDGE ONE (10:53)
[2018-06-04 17:17] LABS: TSH (Thyroid Stimulating Horm) 2.74 mcIU/mL (0.34-5.60)
--- NOTE | 2018-06-04 18:40 | ECHO ---
Amended Report Patient: LISANDRA VILLARREAL [facility] Rec#: [id number] : 1965 Date: 06/04/2018 Age: 52y Height: 168 cm / 66.1 in Weight: 68 kg / 149.9 lbs Sex: F BSA: 1.8 Room#: 431 Admit Date#: 06/04/2018 Type: Inpatient Referring: Radha Pal MD Reading: Huong Robledo MD Curb Supervisor: Monae Lebron RN RDCS Transthoracic Echocardiogram Indication: Atrial fibrillation, SOB BP: 107/76 HR: 64 Rhythm: NSR Findings History: COPD, smoker Technical Comments: The study quality is fair. The study is technically limited due to the patient's history of COPD. The study is technically limited due to the patient's smoking history. Left Ventricle: The left ventricular chamber size is normal. Global left ventricular wall motion and contractility are within normal limits. There is normal left ventricular systolic function. The estimated ejection fraction is 55-60%. Normal left ventricular diastolic filling is observed. Left Atrium: The left atrial chamber size is normal. Right Ventricle: The right ventricular chamber size and systolic function are within normal limits. Right Atrium: The right atrial cavity size is normal. Aortic Valve: The aortic valve is trileaflet. The aortic valve leaflets are mildly thickened. There is no evidence of aortic regurgitation. There is no evidence of aortic stenosis. Mitral Valve: The mitral valve leaflets are mildly thickened. There is a trace of mitral regurgitation. There is no evidence of mitral stenosis. Tricuspid Valve: The tricuspid valve leaflets are normal. There is trace tricuspid regurgitation. Unable to estimate the right ventricular systolic pressure. There is no tricuspid stenosis. Pulmonic Valve: The pulmonic valve structure is not well visualized. There is no evidence of pulmonic regurgitation. There is no pulmonic stenosis. Pericardium: There is no significant pericardial effusion. Aorta: There is no dilatation of the ascending aorta. There is no dilatation of the aortic arch. There is no dilation of the aortic root. Pulmonary Artery: The main pulmonary artery appears normal. Venous: The inferior vena cava appears normal in size. There is a greater than 50% respiratory change in the inferior vena cava dimension. Conclusions Global left ventricular wall motion and contractility are within normal limits. There is normal left ventricular systolic function. The estimated ejection fraction is 55-60%. The right ventricular chamber size and systolic function are within normal limits. All valves appear structurally normal. There is a trace of mitral regurgitation. There is trace tricuspid regurgitation. No prior echo available to compare. Measurements Name Value Normal Range RVIDd (AP) 2D 2.5 cm (0.9 - 2.6) RVDdMajor (2D) 2.9 cm (2.2 - 4.4) RAd ISD 4CH 4 cm (3.4 - 4.9) RA (A4C)W 3.4 cm (2.9 - 4.6) IVSd (2D) 0.8 cm (0.6 - 1) LVPWd (2D) 0.9 cm (0.6 - 1) LVIDd (2D) 3.9 cm (3.6 - 5.4) LVIDs (2D) 2.8 cm - LV FS (2D) 28 % (25 - 45) Aortic Annulus 2.1 cm (1.4 - 2.6) Ao root diameter (2D) 2.4 cm (2.1 - 3.5) Ascending Ao 2.2 cm (2.1 - 3.4) Aortic arch 2.6 cm (1.8 - 3.4) LA dimension (AP) 2D 3 cm (2.3 - 3.8) LAd ISD 4CH 4.2 cm (2.9 - 5.3) LA ISD 4CH W 3.5 cm (2.5 - 4.5) Name Value Normal Range LA ESV BP (A/L) index 18.1 ml/m2 - Name Value Normal Range MV E-wave Vmax 0.87 m/sec - MV deceleration time 292 msec - MV A-wave Vmax 0.85 m/sec - MV E:A ratio 1 ratio - LV septal e' Vmax 0.09 m/sec - LV lateral e' Vmax 0.12 m/sec - LV E:e' septal ratio 9.7 ratio - LV E:e' lateral ratio 7.3 ratio - Name Value Normal Range AV Vmax 1.4 m/sec - AV VTI 26.5 cm - AV peak gradient 8 mmHg - AV mean gradient 4 mmHg - LVOT Vmax 1.2 m/sec - LVOT VTI 24.3 cm - LVOT peak gradient 6 mmHg - LVOT mean gradient 3 mmHg - CYRUS Vmax 0.99 m/sec - Name Value Normal Range IVC diameter 1.5 cm - Name Value Normal Range PV Vmax 1 m/sec -
[2018-06-05 05:00] LABS: ABS Basophils 0.1 10^3/ul (0-0.2); ABS Eosinophils 0 10^3/ul (0-0.6); ABS Lymphocytes 4.5 10^3/ul (1.0-4.8); ABS Monocytes 0.7 10^3/ul (0-0.8); ABS Neutrophils 5.7 10^3/ul (1.5-7.7); ABS Nucleated RBC 0 10^3/ul; Eosinophil % 0.2 %; Hematocrit 43 % (33-41); Hemoglobin 14.2 g/dL (12.0-16.0); Lymphocyte % 40.4 %; Mean Corpuscular HGB Conc 33 g/dL (31-36); Mean Corpuscular Hemoglobin 30 pg (27-31); Mean Corpuscular Volume 90 fL (80-97); Mean Platelet Volume 8.8 fL (7.4-10.4); Nucleated Red Blood Cells % 0.1; Platelet Count 233 10^3/uL (150-450); Red Blood Count 4.79 10^6 /uL (3.70-4.87); Red Cell Distribution Width 14 % (10.5-15); White Blood Count 11.1 10^3/uL (3.5-10.8)
[2018-06-05 05:12] LABS: BUN/Creatinine Ratio 27.4 (8-20); Calcium 9.1 mg/dL (8.6-10.3); EGFR African American 100.5 (>60); EGFR Non-African American 83.1 (>60); Potassium 3.7 mmol/L (3.5-5.0)
[2018-06-05] MEDS: Heparin VIAL(*) 5000 UNITS/ML VIAL (FIVE THOUSAND) SUBCUT SCH (05:16)
[2018-06-05 05:35] LABS: TSH (Thyroid Stimulating Horm) 2.53 mcIU/mL (0.34-5.60)
[2018-06-05] MEDS: Mometasone/Formoter 100/5 MDI INH SCH (07:26)
[2018-06-05] MEDS: predniSONE TAB* 20 MG PO SCH (07:57)
[2018-06-05 08:15] VITALS: BP 118/51
[2018-06-05] MEDS ORDERED: Azithromycin TAB* 250 MG PO SCH (09:00)
--- NOTE | 2018-06-05 11:50 | DS ---
CC: [facility]* DATE OF ADMISSION: 06/04/2018. DATE OF DISCHARGE: 06/05/2018. PRIMARY CARE PROVIDER: No primary care provider. ATTENDING PHYSICIAN: Dr. Eva Wood* (dictated by Anatoly Morris NP). PRIMARY DIAGNOSES: 1. COPD exacerbation. 2. Paroxysmal atrial fibrillation. 3. Sinusitis. 4. Tobacco dependence. DISCHARGE MEDICATIONS: New home medications: 1. Azithromycin 250 mg p.o. times 3 more days. 2. Prednisone 40 mg p.o. daily times 3 more days. 3. Albuterol inhaler one to two puffs q.6 hours prn wheezing. 4. Dulera 100/5 MDI two puffs inhalation b.i.d. 5. Tylenol 650 mg p.o. q.4 hours prn pain or fever. Continued home medications: The patient was not on any home medications. Discontinued home medications: Once again, the patient was not on any home medications. HISTORY OF PRESENT ILLNESS/HOSPITAL COURSE: Ms. Mtz is a 52-year-old female who presented to the emergency room on 06/03/2018 with complaints of shortness of breath times three days. Please see history and physical dictated by Dr. Pal for further details of events leading up to the patient's presentation to the emergency room. In short, the patient reports she was in her normal state of health three days prior and started to have URI symptoms, which included coughing, runny nose, sore throat and fatigue. Symptoms worsened to the point that she had persistent shortness of breath and was not able to ambulate around the house without gasping; therefore, the patient presented to the emergency room. While in the emergency room, the patient was provided with an Albuterol nebulizer and experienced one episode of atrial fibrillation while in the emergency room that resolved on its own. Given this, the patient was admitted to [facility] for further monitoring. While on telemetry, the patient has been sinus rhythm. We suspect the patient's episode of paroxysmal atrial fibrillation was due to Albuterol nebulizer. While admitted, the patient was also treated for COPD exacerbation with Prednisone and antibiotics. The patient is stable for discharge home today. Vital Signs: Temperature 97.4, heart rate 57, respiratory rate 20, O2 saturation 98 percent on room air, blood pressure 118/51. REVIEW OF SYSTEMS: The patient reports cough which is now productive. The patient denies shortness of breath, chest pain, palpitations, lightheadedness, dizziness, nausea, vomiting, and diarrhea. A 14 point review of systems was completed and all were negative. PHYSICAL EXAMINATION: General: Ms. Mtz is a 52-year-old female who is sitting in bed, appears in no acute distress, appears stated age. HEENT: EOM' s intact. PERRLA. Oral mucosa is moist without lesions. Posterior pharynx is clear. Neck: Supple, no lymphadenopathy. Respiratory: The patient has sporadic rhonchi that clears well with cough, good aeration, no crackles or wheezes. Cardiac: S1, S2 present. No murmurs, rubs, or gallops. Regular rate and rhythm. The patient is sinus rhythm on tele. Abdomen: Soft, nontender. Bowel sounds times four. Extremities: No edema. No clubbing or cyanosis. No pain or deformities. Skin: Skin is intact. Neuro: Neuro exam is grossly intact. No focal deficits or weakness. LABORATORY DATA/DIAGNOSTIC STUDIES: WBC 11.1, hemoglobin 14.2, hematocrit 43, platelets 233; sodium 138, potassium 3.7, chloride 108, carbon dioxide 25, BUN 20, creatinine 0.73, TSH 2.53. Chest x-ray: Impression: Elevated lung volumes and minimal prominence of interstitial markings. No focal pulmonary lesions, compelling alveolar consolidation, pleural effusion, or pneumothorax. The heart and pulmonary vasculature and mediastinal contours are unremarkable. Mild thoracic degenerative spondylosis. Stigmata of obstructive lung disease. No acute pulmonary or cardiac process evident. Transthoracic echo: Impression: Global left ventricular wall motion and contractility are within normal limits. There is normal left ventricular systolic function. The estimated ejection fraction is 55 to 60 percent. The right ventricular chamber size and systolic function are within normal limits. All valves appear structurally normal. There is trace of mitral regurgitation. There is trace tricuspid regurgitation. DISCHARGE PLAN: 1. COPD exacerbation: The patient reports shortness of breath is much improved. The patient reports she continues to cough, but is less frequent. The patient reports she is also able to immobilize secretions now. The patient should continue her Prednisone for a total of five days. The patient should continue Azithromycin for a total of five days. The patient will be discharged with Advair inhaler. We discussed need for rescue inhaler and patient reports that she has had an Albuterol inhaler in the past and did not have any issues. She believes she had palpitations in the emergency room as this was "too large of a dose" in the form of a nebulizer. I will also discharge the patient with an Albuterol rescue inhaler. I have encouraged her that if she has palpations to cease use of this and call her primary care immediately. 2. Atrial fibrillation: As mentioned above, the patient had a short episode of atrial fibrillation while in the emergency department. This was determined to be paroxysmal atrial fibrillation secondary to Albuterol nebulizer. The patient has remained in sinus rhythm since that time. The patient's CHADS-VASC score is 1, therefore not favoring anticoagulation. We did get an echo which was unremarkable. We also checked a TSH which was unremarkable. I have encouraged the patient to call 911 if she begins to have palpitations that are persistent. I have encouraged the patient to follow-up with her primary care if she has episodes of palpitations again. I have also encouraged her to cease use of her rescue inhaler if she experiences palpitations. 3. Tobacco dependence: The patient reports she has been successfully reducing smoking on her own. She reports she previously smoked three packs per day and she is down to five cigarettes a day. We discussed the importance of tobacco cessation and nicotine supplementation if needed. The patient states understanding. FOLLOW-UP: The patient will be referred to [facility] for a follow -up later this week as she does not have a primary care provider. EDUCATION: The patient was educated on signs and symptoms of new or worsening condition and when to return to the emergency department. The patient states understanding. TIME SPENT: Approximately 35 minutes were spent on this discharge, greater than half that time was spent [id number] with the patient discussing discharge plans and instructions. This plan was also discussed with my attending, Dr. Wood, who agrees with my plan. ANATOLY MORRIS, GIFTY [id number]/[facility] #: [id number] APOORVA
== END 2018-06-05 12:17 | disposition home or self-care (01) ==
LOC: ED 16:36 → MEDTELE 06-04 03:28
PROVIDERS: ADMIT Internal Medicine; ATTEND Internal Medicine
DX: J44.1 Chronic obstructive pulmonary disease with (acute) exacerbation (principal); I48.0 Paroxysmal atrial fibrillation; J32.9 Chronic sinusitis, unspecified; F17.210 Nicotine dependence, cigarettes, uncomplicated; Z88.0 Allergy status to penicillin; R50.9 Fever, unspecified; Z86.14 Personal history of Methicillin resistant Staphylococcus aureus infection; J98.01 Acute bronchospasm; R53.83 Other fatigue
CPT/HCPCS: 36415; 71046; 80048; 80053; 82803; 83605; 83880; 84443; 84484; 85025; 85379; 87040; 93005; 93306; 94640; 96372; 99284; A9270-GY; G0378; J1644; J7512